=== PATIENT | male | born 1975 | race Caucasian/White ===

== ENCOUNTER 2021-05-19 09:56 | Emergency (ER) | payer OTHER ==
[2021-05-19 10:05] VITALS: BP 135/69; PULSE 88; TEMP 97.2; BMI 29.2
[2021-05-19] MEDS ORDERED: KETOROLAC TROMETHAMINE 15 MG/ML VIAL IM ONE (10:55)
[2021-05-19] MEDS ORDERED: METHOCARBAMOL 500 MG TABLET PO ONE (10:55)
[2021-05-19] MEDS ORDERED: KETOROLAC TROMETHAMINE 15 MG/ML VIAL ONE (10:59)
[2021-05-19] MEDS ORDERED: METHOCARBAMOL 500 MG TABLET ONE (11:00)
== END 2021-05-19 11:31 | disposition home or self-care (01) ==
LOC: JERFT 09:56
PROC: 3E0233Z Introduction of Anti-inflammatory into Muscle, Percutaneous Approach (ICD-10-PCS; principal; 2021-05-19)
DX: M43.6 Torticollis (principal); M62.838 Other muscle spasm; X50.3XXA Overexertion from repetitive movements, initial encounter
CPT/HCPCS: 72050-TC-FY; 99284-25